=== PATIENT | female | born 1980 | race Caucasian/White ===

== ENCOUNTER 2016-08-16 18:08 | Inpatient (IN) | payer OTHER ==
[2016-08-16] VITALS (50 sets, daily range): BP systolic 90–133; BP diastolic 45–97; PULSE 66–101; RESP 16–18; TEMP 98.1–98.3; O2SAT 100
[~2016-08-16] VITALS: Ht 167.6 cm; Wt 75.3 kg
[~2016-08-16 18:08] MED LIST: DIPHTH/TETANUS/ACEL PERTUSSIS (BOOSTER) 0.5 ML VIAL/PFS IM ONE; IBUP600 PO; LEVO125T3 PO; MEASLES, MUMPS, RUBELLA VACCINE 0.5 ML VIAL SQ ONE; OXYC1SOL5 PO; PREN0.01 PO; SLOW160T PO
[2016-08-16] MEDS ORDERED: fentaNYL 2MCG-BUPIV 0.125% INJ 100 ML ONE (18:54)
[2016-08-16] MEDS ORDERED: OXYTOCIN 30 UNITS 500ML PREMIX IV ONE (19:15)
[2016-08-16] MEDS ORDERED: MINERAL OIL 10 ML VIAL TOPICAL PRN (19:15)
[2016-08-16] MEDS ORDERED: LIDOCAINE HCL 1% 50 ML VIAL INFIL PRN (19:15)
[2016-08-16 19:23] LABS: BACTERIA, URINE RARE /hpf; BLOOD, URINE NEG (NEG); COMMENT (UR) CULT NOT INDICATED; CULTURE IF INDICATED CULT NOT INDICATED; GLUCOSE,URINE 300 mg/dL (NEG); KETONE, URINE TRACE mg/dL (NEG); MUCUS URINE FEW /lpf (OCC); NITRITE,URINE NEG (NEG); PH, URINE 5.5 (5.0-8.5); SQUAMOUS EPITHELIAL CELL URINE 16 /hpf (0-5); URINE COLOR YELLOW (YELLW/STRAW)
[2016-08-16] MEDS ORDERED: ePHEDrine/NS 25 MG/5 ML SYR ONE (19:23)
--- NOTE | 2016-08-16 19:26 | PD ---
HPI Chief Complaint contractions Date Seen: Aug 16, 2016 Time Seen: 18:20 Travel History International Travel<30 Days: No Contact w/Intl Traveler<30Days: No Known Affected Area: No History of Present Illness HPI This is 36y/o at 39w5d who presented to the [facility] with reports of contractions since 0200. She states the contractions were spaced out but only now are 5-6 minutes apart. She denies vaginal bleeding or leakage of fluid with reports of active movements. Pt will get an epidural as she did with her first delivery. care at [facility], no records available for review but per patient, complicated by: 1. AMA 2. hypothyroidism 3. h/o melanoma 4. h/o exp laparotomy Para: 1 : 2 Miscarriage: 0 : 0 History Past Medical History Narrative Medical Hypothyroidism Obstetric History Obstetric History 09/01/2014 38w , Male "Chucky" 6lb8oz Past Surgical History Narrative Surgical H/o laparotomy Family History Family History: Negative Social History Alcohol Use: No Tobacco Use: No Substance Abuse: No Allergies-Medications (Allergen,Severity, Reaction): Coded Allergies: No Known Allergies (Unverified , 09/01/14) Home Meds Active Scripts Oxycodone W/ Acetaminophen (Oxycodone/Acetaminophen 5-325 mg/5Ml)1 Tab Tab1 Tab PO Q4H PRN (PAIN SCALE 1 TO 4) #14 TAB Ref 0 Prov:Neymar Nichols MD 09/02/14 Ibuprofen (Motrin 600 Mg Tab)600 Mg [id number] Mg PO Q6H PRN ( CRAMPING) # 20 TAB Ref 1 Prov:Neymar Nichols MD 09/02/14 Reported Medications Ferrous Sulfate Dried (Slow Fe)160 Mg [id number] Mg PO 09/01/14 Levothyroxine Sodium (Levothyroxine 125 mcg)125 Mcg [id number] Mcg PO DAILY 09/01/14 Multivit/Min/Fol Ac/Iron/Pren ( Vit ( Plus)) Tab1 Tab PO DAILY 09/01/14 Review of Systems Except as stated in HPI: all other systems reviewed are Neg Physical Exam Vital Signs Date Time Temp Pulse Resp B/P Pulse Ox O2 Delivery O2 Flow Rate FiO2 08/16/16 19:05 82 133/78 Narrative GENERAL: Well-nourished, well-developed patient, breathing through contractions SKIN: Warm and dry. HEAD: Normocephalic and atraumatic. EYES: No scleral icterus. No injection or drainage. ENT: No nasal drainage noted. Mucous membranes pink. Airway patent. NECK: Supple, trachea midline. No JVD. CARDIOVASCULAR: Regular rate and rhythm without murmurs, gallops, or rubs. RESPIRATORY: Breath sounds equal bilaterally. No accessory muscle use. BREASTS: Bilateral exam showed no masses , no retractions, no nipple discharge. ABDOMEN/GI: Abdomen soft, non-tender, bowel sounds present, no rebound, no guarding Gravid: 39w GENITOURINARY: VE per RN: 80/-1 FHT's: Cat I Contractions: q 3-4 minutes apart EXTREMITIES: No cyanosis or edema. BACK: Nontender without obvious deformity. No CVA tenderness. NEUROLOGICAL: Awake and alert. Motor and sensory grossly within normal limits. Five out of 5 muscle strength in all muscle groups. Normal speech. Data Data Vital Signs Reviewed: Yes Orders Ob (2e) Additional Admit Info (08/16/16 18:40) Fentanyl Inj (Fentanyl Inj) (08/16/16 18:53) Fentanyl 2mcg-Bupiv 0.125% Inj (Fentanyl (08/16/16 18:54) Admit To Inpatient (08/16/16 ) Vital Signs (Adult) .Per protocol (08/16/16 19:03) Activity Oob Ad Annika (08/16/16 19:03) Heart (08/16/16 19:03) Amnioinfusion (08/16/16 19:03) Urinary Catheter Management .ONCE (08/16/16 19:03) Diet Liquid (08/17/16 Breakfast) Complete Blood Count With Diff (08/16/16 19:03) Hold Clot (08/16/16 19:03) Abo/Rh Blood Type (08/16/16 19:03) Urinalysis - C+S If Indicated (08/16/16 19:03) Resp Oxygen Non Rebreathe Mask (08/16/16 ) ^ Epidural / Intrathecal Infus (08/16/16 19:03) ^ Place On Chart (08/16/16 ) ^ Medication Indications (08/16/16 ) Consent (08/16/16 ) ^ No Systemic Narcotics (08/16/16 ) ^ Call Anesthesiologist (08/16/16 ) ^ Discontinue Epidural Cathete (08/16/16 ) Anticoagulant Alert (08/16/16 ) ^ Epidural Alert (08/16/16 ) Lactated Ringer's 1000 Ml Inj (Lr 1000 M (08/16/16 19:30) Lactated Ringer's 1000 Ml Inj (Lr 1000 M (08/16/16 19:30) Sodium Chlorid 0.9% 500 Ml Inj (Ns 500 M (08/16/16 19:30) Sodium Chlor 0.9% 1000 Ml Inj (Ns 1000 M (08/16/16 19:30) Lidocaine 1% Inj (50 Ml) (Xylocaine 1% I (08/16/16 19:30) Citric Acid-Sodium Citrate Liq (Bicitra (08/16/16 19:30) Ondansetron Inj (Zofran Inj) (08/16/16 19:30) Fentanyl Inj (Fentanyl Inj) (08/16/16 19:15) Fentanyl Inj (Fentanyl Inj) (08/16/16 19:15) Oxytocin 30 Units-500ml Premix (Pitocin (08/16/16 19:15) Lidocaine 1% Inj (50 Ml) (Xylocaine 1% I (08/16/16 19:15) Light Mineral Oil (Muri-Lube Oil) (08/16/16 19:15) Vital Signs (Adult) .ON ADMISSION (08/16/16 19:17) ^ Labor Status (08/16/16 19:17) ^ Non Stress Test (08/16/16 19:17) MDM Medical Record Reviewed: No (No records available, history taken in depth) Plan 36y/o at 39w5d in active labor. -admit for delivery -anticipate -epidural when desired -Dr. Boo aware of admission Diagnosis Diagnosis: Primary Impression: Multigravida of advanced maternal age in third trimester Ryanne Adame MD Aug 16, 2016 19:26
[2016-08-16] MEDS ORDERED: LIDOCAINE HCL 1% 50 ML VIAL I-DERMAL PRN (19:30)
[2016-08-16] MEDS ORDERED: LACTATED RINGER'S 1000 ML IV SCH (19:30)
[2016-08-16] MEDS ORDERED: LACTATED RINGER'S 1000 ML BOLUS IV PRN (19:30)
[2016-08-16] MEDS ORDERED: NS 500 ML BOLUS IV PRN (19:30)
[2016-08-16] MEDS ORDERED: NS 1000 ML IV PRN (19:30)
[2016-08-16] MEDS ORDERED: ONDANSETRON HCL 4 MG/2 ML VIAL IV PRN (19:30)
[2016-08-16] MEDS ORDERED: CITRIC ACID-SODIUM CITRATE LIQ 30 ML UDC PO SCH (19:30)
[2016-08-16 19:39] LABS: AUTOMATED NEUTROPHIL # 9.9 TH/MM3 (1.8-7.7); BASOPHIL % 0.2 % (0.0-2.0); EOSINOPHIL % 0.1 % (0.0-4.0); HEMATOCRIT 34.6 % (35.0-46.0); HEMO FLAGS DIFF FINAL; LYMPH % 12.3 % (9.0-44.0); LYMPHOCYTE # 1.5 TH/MM3 (1.0-4.8); MEAN CELL VOLUME 78.9 FL (80.0-100.0); MEAN CORPUSCULAR HEMOGLOBIN 27.3 PG (27.0-34.0); MEAN CORPUSCULAR HGB CONC 34.5 % (32.0-36.0); MONO % 5.4 % (0.0-8.0); PLATELET COUNT 191 TH/MM3 (150-450); RED BLOOD COUNT 4.38 MIL/MM3 (4.00-5.30); RED CELL DISTRIBUTION WIDTH 16.5 % (11.6-17.2); WHITE BLOOD COUNT 12.1 TH/MM3 (4.0-11.0)
[2016-08-16] MEDS ORDERED: NO SYSTEM NARCOTICS PRN (22:15)
[2016-08-16] MEDS ORDERED: ePHEDrine/NS 25 MG/5 ML SYR IV PRN (22:15)
[2016-08-16] MEDS ORDERED: DO NOT ADMINISTER ANTICOAGULANTS PRN (22:15)
[2016-08-16] MEDS ORDERED: fentaNYL 2MCG-BUPIV 0.125% 100 ML EPIDURAL SCH (22:15)
--- NOTE | 2016-08-16 23:14 | PD.OB.DELI ---
Delivery Date: Aug 16, 2016 Anesthesia: Epidural Episiotomy: None Vaginal Delivery: Normal Presentation: Occiput anterior Nuchal Cord: None Delayed cord clamping (45 sec): Yes Infant: Female One Minute : 9 Five Minute : 9 Weight: 6 lb 13oz Placenta: Spontaneous delivery, Intact, Other (true knot) Laceration: 2 deg Repair: ChromAltagracia Anderson MD Aug 16, 2016 23:14
[2016-08-16] MEDS ORDERED: BENZOCAINE 20% TOPICAL SPRAY 60 ML CAN TOPICAL PRN (23:15)
[2016-08-16] MEDS ORDERED: WITCH HAZEL 50%/GLYCERIN 12.5% 40 PAD JAR TOPICAL PRN (23:15)
[2016-08-16] MEDS ORDERED: ZOLPIDEM TARTRATE 5 MG TAB PO PRN (23:15)
[2016-08-16] MEDS ORDERED: SODIUM CHLORIDE 0.9% FLUSH 10 ML FLUSH IV FLUSH PRN (23:15)
[2016-08-16] MEDS ORDERED: ACETAMINOPHEN 325 MG TAB PO PRN (23:15)
[2016-08-16] MEDS ORDERED: ONDANSETRON ODT 4 MG TAB PO PRN (23:15)
[2016-08-16] MEDS ORDERED: ALUMINUM/MAGNESIUM/SIMETH 30 ML CUP PO PRN (23:15)
[2016-08-17] VITALS (10 sets, daily range): BP systolic 104–127; BP diastolic 52–70; PULSE 68–91; RESP 16–18; TEMP 98.3–98.8
[2016-08-17] MEDS: IBUPROFEN 600 MG TAB PO PRN ×3 (05:29→20:01)
--- NOTE | 2016-08-17 10:31 | HHI.OB ---
Subjective Post Day: 1 Remarks doing well, breast feeding Objective Vitals/I&O Vital Signs Date Time Temp Pulse Resp B/P Pulse Ox O2 Delivery O2 Flow Rate FiO2 08/17/16 07:28 104/52 08/17/16 07:28 98.3 68 16 08/17/16 02:00 98.6 80 16 119/60 08/17/16 01:15 98.8 08/17/16 01:15 18 08/17/16 01:12 69 121/62 08/17/16 00:45 18 08/17/16 00:32 87 108/53 08/17/16 00:25 18 08/17/16 00:16 87 108/67 08/17/16 00:01 91 127/62 08/16/16 23:46 91 112/82 08/16/16 23:34 18 08/16/16 23:30 98.1 08/16/16 23:30 85 128/97 08/16/16 23:26 18 08/16/16 23:17 90 111/68 08/16/16 22:30 18 08/16/16 22:25 94 100 08/16/16 22:20 78 100 08/16/16 22:15 18 08/16/16 22:15 84 125/64 100 08/16/16 22:15 83 08/16/16 22:10 95 100 08/16/16 22:05 101 100 08/16/16 22:00 78 08/16/16 22:00 81 113/61 100 08/16/16 22:00 18 08/16/16 21:55 72 08/16/16 21:55 100 08/16/16 21:50 100 08/16/16 21:50 81 08/16/16 21:45 74 08/16/16 21:45 100 08/16/16 21:45 73 100/47 08/16/16 21:37 98.3 08/16/16 21:37 18 08/16/16 21:35 75 08/16/16 21:30 67 16 97/48 08/16/16 21:30 69 08/16/16 21:25 66 08/16/16 21:20 68 08/16/16 21:16 69 101/46 08/16/16 21:15 68 18 08/16/16 21:10 68 08/16/16 21:05 87 08/16/16 21:00 70 08/16/16 21:00 70 18 112/52 08/16/16 20:55 72 08/16/16 20:50 73 08/16/16 20:45 75 110/58 08/16/16 20:45 74 08/16/16 20:30 87 08/16/16 20:30 18 08/16/16 20:30 72 113/75 08/16/16 20:15 18 08/16/16 20:15 75 110/45 08/16/16 20:15 67 08/16/16 20:13 68 111/48 08/16/16 20:10 66 100 08/16/16 20:05 66 100 08/16/16 20:00 67 08/16/16 20:00 68 98/49 100 08/16/16 19:56 69 90/57 08/16/16 19:55 88 08/16/16 19:50 73 109/62 08/16/16 19:50 66 08/16/16 19:45 78 122/67 08/16/16 19:45 80 08/16/16 19:40 68 116/65 08/16/16 19:40 79 08/16/16 19:35 78 08/16/16 19:35 72 117/74 08/16/16 19:31 18 08/16/16 19:30 72 18 113/57 08/16/16 19:26 75 114/54 08/16/16 19:25 73 08/16/16 19:20 71 08/16/16 19:20 79 121/60 08/16/16 19:18 73 118/59 08/16/16 19:15 83 18 08/16/16 19:14 85 105/68 08/16/16 19:10 74 08/16/16 19:05 82 133/78 Objective Remarks GENERAL: Well-nourished, well-developed patient. CARDIOVASCULAR: Regular rate and rhythm without murmurs, gallops, or rubs. RESPIRATORY: Breath sounds equal bilaterally. No accessory muscle use. ABDOMEN/GI: Abdomen soft, non-tender. Fundus: Firm, non-tender at umbilicus. GENITOURINARY: Light to moderate bleeding. EXTREMITIES: No cyanosis or edema, non-tender, without signs of DVT. Medications and IVs Current Medications Medications (Trade) Dose Ordered Sig/Jose Carlos Route Start Time Stop Time Status Last Admin (NS Flush) 2 ml BID IV FLUSH 08/17/16 21:00 (NS Flush) 2 ml UNSCH PRN IV FLUSH 08/16/16 23:15 (Tylenol) 650 mg Q4H PRN PO 08/16/16 23:15 (Motrin) 600 mg Q6H PRN PO 08/16/16 23:15 08/17/16 05:29 (Americaine 20% Top Spr) 1 spray Q4H PRN TOPICAL 08/16/16 23:15 (Tucks Pads) 1 applic QID PRN TOPICAL 08/16/16 23:15 (Emani-Colace) 2 tab Q12H PRN PO 08/16/16 23:15 (Ambien) 5 mg HS PRN PO 08/16/16 23:15 (Mag-Al Plus Susp Liq) 15 ml Q8H PRN PO 08/16/16 23:15 (Zofran Odt) 4 mg Q6H PRN PO 08/16/16 23:15 Assessment/Plan Problem List: (1) (spontaneous vaginal delivery) Assessment and Plan PPD 1 s/p - cont routine care - dispo- home tomorrow Altagracia Boo MD Aug 17, 2016 10:31
[2016-08-17] MEDS ORDERED: IBUP-232 PO (11:20)
--- NOTE | 2016-08-17 11:20 | HHI.DCPOC ---
Discharge Care Plan Diagnosis: (1) (spontaneous vaginal delivery) Your Health Problems Are: Vaginal delivery Report Symptoms to Your Doctor -Temperate above 100.5 degrees -Redness, of incision or excessive or foul smelling drainage -Unusual pain or calf pain -Increased vaginal bleeding -Painful or difficulty urinating -Feelings of extreme sadness or anxiety after 2 weeks Goals to Promote Your Health * To prevent worsening of your condition and complications * To maintain your health at the optimal level Directions to Meet Your Goals Take your medications as prescribed Follow your dietary instruction Follow activity as directed Ensure plenty of rest for recovery Drink fluids for hydration Keep your appointments as scheduled Take your immunizations and boosters as scheduled If your symptoms worsen call your PCP, if no PCP go to Urgent Care Center or Emergency Room Smoking is Dangerous to Your Health. Avoid second hand smoke Call the 24-hour crisis hotline for domestic abuse at Altagracia Boo MD Aug 17, 2016 11:20
[2016-08-17] MEDS: DOCUSATE SODIUM 50 MG/SENNA 8.6 MG TAB PO PRN (12:16)
[2016-08-17] MEDS ORDERED: SODIUM CHLORIDE 0.9% FLUSH 10 ML FLUSH IV FLUSH SCH (21:00)
[2016-08-18 08:00] VITALS: BP 114/62; PULSE 76; RESP 15; TEMP 98.3
[2016-08-18] MEDS: DOCUSATE SODIUM 50 MG/SENNA 8.6 MG TAB PO PRN (08:19)
[2016-08-18] MEDS: IBUPROFEN 600 MG TAB PO PRN (08:22)
--- NOTE | 2016-08-18 08:54 | HHI.OB ---
Subjective Post Day: 2 Remarks PPD#2, Stable, ready for discharge Objective Vitals/I&O Vital Signs Date Time Temp Pulse Resp B/P Pulse Ox O2 Delivery O2 Flow Rate FiO2 08/17/16 19:40 98.3 77 18 121/70 Objective Remarks GENERAL: Well-nourished, well-developed patient. CARDIOVASCULAR: Regular rate and rhythm without murmurs, gallops, or rubs. RESPIRATORY: Breath sounds equal bilaterally. No accessory muscle use. ABDOMEN/GI: Abdomen soft, non-tender. Fundus: Firm, non-tender at umbilicus. GENITOURINARY: Light to moderate bleeding. EXTREMITIES: No cyanosis or edema, non-tender, without signs of DVT. Medications and IVs Current Medications Medications (Trade) Dose Ordered Sig/Jose Carlos Route Start Time Stop Time Status Last Admin (NS Flush) 2 ml BID IV FLUSH 08/17/16 21:00 (NS Flush) 2 ml UNSCH PRN IV FLUSH 08/16/16 23:15 (Tylenol) 650 mg Q4H PRN PO 08/16/16 23:15 (Motrin) 600 mg Q6H PRN PO 08/16/16 23:15 08/18/16 08:22 (Americaine 20% Top Spr) 1 spray Q4H PRN TOPICAL 08/16/16 23:15 08/17/16 12:17 (Tucks Pads) 1 applic QID PRN TOPICAL 08/16/16 23:15 08/17/16 12:17 (Emani-Colace) 2 tab Q12H PRN PO 08/16/16 23:15 08/18/16 08:19 (Ambien) 5 mg HS PRN PO 08/16/16 23:15 (Mag-Al Plus Susp Liq) 15 ml Q8H PRN PO 08/16/16 23:15 (Zofran Odt) 4 mg Q6H PRN PO 08/16/16 23:15 Assessment/Plan Problem List: (1) (spontaneous vaginal delivery) Assessment and Plan PPD 2 s/p - cont routine care - dispo- home today Discharge Planning Routine Neymar Nichols MD Aug 18, 2016 08:54
== END 2016-08-18 11:07 | disposition home or self-care (01) | DRG 775 ==
LOC: HOBED 18:08 → H2EB 18:43 → H1EA 08-17 01:21
PROVIDERS: ADMIT Obstetrics & Gynecology; ATTEND Obstetrics & Gynecology
PROC: 10E0XZZ Delivery of Products of Conception, External Approach (ICD-10-PCS; principal; 2016-08-16)
PROC: 0KQM0ZZ Repair Perineum Muscle, Open Approach (ICD-10-PCS; 2016-08-16)
PROC: 3E0S3CZ (ICD-10-PCS; 2016-08-16)
PROC: 00HU33Z Insertion of Infusion Device into Spinal Canal, Percutaneous Approach (ICD-10-PCS; 2016-08-16)
DX: O99.284 Endocrine, nutritional and metabolic diseases complicating childbirth (principal); E03.9 Hypothyroidism, unspecified; O09.523 Supervision of elderly multigravida, third trimester; O70.1 Second degree perineal laceration during delivery; O69.2XX0 Labor and delivery complicated by other cord entanglement, with compression, not applicable or unspecified; Z37.0 Single live birth; Z3A.39 39 weeks gestation of pregnancy; Z85.820 Personal history of malignant melanoma of skin
CPT/HCPCS: 81001; 85025; 86900; 86901; 99285; J3010